=== PATIENT | female | born 1960 | race Hispanic/Latino ===

== ENCOUNTER 2018-05-24 06:28 | Day surgery (SDC) | payer BC ==
[2018-05-09 13:26] VITALS: BMI 24.0
[2018-05-24 07:02] VITALS: TEMP 98
[2018-05-24] MEDS ORDERED: Propofol 10 mg/ml Inj (20 ML) ONE (07:57)
[2018-05-24] MEDS ORDERED: Midazolam 2 MG/2 ML VIAL ONE (07:57)
[2018-05-24] MEDS ORDERED: Sodium Chloride 0.9% 1,000 ML IV SCH (08:45)
[2018-05-24 09:28] VITALS: BP 126/71; PULSE 51; RESP 16; O2SAT 100
== END 2018-05-24 10:49 | disposition home or self-care (01) ==
LOC: ENDO 06:28
PROVIDERS: ATTEND Specialist
DX: D12.3 Benign neoplasm of transverse colon (principal); D12.4 Benign neoplasm of descending colon; K62.1 Rectal polyp; K57.30 Diverticulosis of large intestine without perforation or abscess without bleeding; K64.8 Other hemorrhoids
CPT/HCPCS: 45380; 45385; 88305; J2001; J2250; J2704; J7030